=== PATIENT | male | born 1935 | race Caucasian/White ===

== ENCOUNTER 2019-05-16 22:47 | Inpatient (IN) | payer OTHER, MEDICAID ==
[~2019-05-16] VITALS: Ht 165.1 cm; Wt 58.1 kg
[2019-05-16 22:47] VITALS: BP 113/68
--- NOTE | 2019-05-16 22:49 | NUR ---
PT BIBA TO BED 11
--- NOTE | 2019-05-16 22:50 | NUR ---
PT RA FROM [facility]. PER KIKE LANDAVERDE AT FACILITY PT WAS FOUND SITTING DOWN ON THE FLOOR AT 0840. ONLY BLOOD WORK WAS PERFORMED AND THEY FOUND POTASSIUM AT 6.3 AND ELEVATED BUN AND CREATININE. PT IS ALERT AND ORIENTED TO PERSON, PLACE, AND TIME. [facility] PT DENIES ANY PAIN, PAIN LEVEL 0/10. DENIES N/V/D. PT HAS OLD SURGICAL SCAR ON ABDOMEN. NKA. MED HX: REPEATED FALLS, LACK OF COORDINATION, MUSCLE WEAKNESS, DYSPHAGIA, ADULT FAILURE TO THRIVE, DM2, HTN, ATAXIA, AND UNSPECIFIED DEMENTIA. SAFETY MEASURES IN PLACE. BED IN LOWEST POSITION, HOB ELEVATED, BED RAILS UP X2. ERMD MADE AWARE OF PT STATUS.
--- NOTE | 2019-05-16 22:55 | NUR ---
CALLED [facility] AND SPOKE TO KIKE LANDAVERDE. PER CASH TELLER PT WAS FOUND SITTING DOWN ON FLOOR AT 0840, ONLY LABS WERE DRAWN.
--- NOTE | 2019-05-16 23:20 | NUR ---
LAB AT BEDSIDE
[2019-05-16 23:45] LABS: BASOPHILS % (AUTO) 0.4 % (0.0-2.0); EOSINOPHILS # (AUTO) 0.1 K/uL (0-0.4); EOSINOPHILS % (AUTO) 1.3 % (0.0-4.0); HEMOGLOBIN 14.3 g/dL (12.0-18.0); LYMPHOCYTES # (AUTO) 1.2 K/uL (2.0-11.5); LYMPHOCYTES % (AUTO) 13.4 % (20.5-51.1); MEAN CORPUSCULAR HEMOGLOBIN 31 pg (27-31); MEAN CORPUSCULAR HGB CONC 33 g/dL (33-37); MONOCYTES # (AUTO) 0.7 K/uL (0.8-1.0); NEUTROPHILS # (AUTO) 7.2 K/uL (1.8-7.7); NEUTROPHILS % (AUTO) 76.9 % (42.2-75.2); PLATELET COUNT (AUTO) 276 K/uL (140-450); RED BLOOD CELL COUNT(AUTO) 4.58 MIL/uL (4.20-6.10); RED CELL DISTRIBUTION WIDTH 13.9 % (11.6-13.7); WHITE BLOOD COUNT (AUTO) 9.3 K/uL (4.8-10.8)
[2019-05-17] VITALS (7 sets, daily range): BP systolic 89–116; BP diastolic 48–68
--- NOTE | 2019-05-17 00:03 | NUR ---
PT UNABLE TO COLLECT URINE SAMPLE AFTER MULTIPLE ATTEMPTS. DR MOURA MADE AWARE, PER ERMD, OK TO STRAIGHT CATH PT. EXPLAINED PROCEDURE TO PT, PT VERBALIZED UNDERSTANDING, TOLERATED PROCEDURE WELL, CLEAR YELLOW URINE 60ML URINE SAMPLE COLLECTED AND SENT TO LAB.
[2019-05-17 00:11] LABS: APPEARANCE,URINE CLEAR (CLEAR); BILIRUBIN,URINE NEGATIVE (NEGATIVE); BLOOD, URINE NEGATIVE (NEGATIVE); COLOR,URINE YELLOW (YELLOW); LEUKOCYTE ESTERASE ,URINE NEGATIVE (NEGATIVE); NITRITE, URINE NEGATIVE (NEGATIVE); PH,URINE 5.5 (5.0-9.0); UGLUCOSE 2+ (NEGATIVE)
[2019-05-17 00:20] LABS: ALBUMIN 3.6 g/dL (3.4-5.0); ANION GAP 19.5 (8-16); ASPARTATE AMINOTRANSFERASE 38 U/L (15-37); CARBON DIOXIDE 17.7 mmol/L (21-32); CHLORIDE 104 mmol/L (98-107); CREATININE 2.6 mg/dL (0.7-1.3); GLUCOSE 91 mg/dL (74-106); MAGNESIUM 2.7 mg/dL (1.8-2.4); SODIUM SERUM 135 mmol/L (136-145); TOTAL BILIRUBIN 0.3 mg/dL (0.0-1.0)
[2019-05-17 00:22] LABS: POTASSIUM 6.2 mmol/L (3.5-5.1); UREA NITROGEN, BLOOD 67 mg/dL (7-18)
[2019-05-17 00:30] LABS: RBC,URINE NONE SEEN /HPF (0-5); WBC,URINE 0-5 /HPF (0-5)
[2019-05-17] MEDS ORDERED: SODIUM POLYSTYRENE 15 GM/60 ML UDBTL PO ONE (00:30)
[2019-05-17] MEDS ORDERED: ALBUTEROL 0.083% 2.5 MG/3 ML NEBU INH ONE (00:30)
[2019-05-17] MEDS ORDERED: DEXTROSE 25% 10 ML SYR IVP ONE (00:30)
[2019-05-17] MEDS ORDERED: NACL 0.9% 1,000 ML IV ONE ×2 (00:30→05:50)
[2019-05-17] MEDS ORDERED: INSULIN REGULAR, HUMAN 100 UNIT/ML VIAL SUBQ ONE (00:30)
[2019-05-17] MEDS ORDERED: CALCIUM GLUCONATE 10% 1000 MG/10 ML VIAL IVP ONE (00:30)
[2019-05-17] MEDS ORDERED: DEXTROSE 50% 50 ML SYR IVP ONE (00:40)
--- NOTE | 2019-05-17 00:53 | NUR ---
PT RETURNED FROM CT
[2019-05-17 01:04] LABS: ACETONE, SERUM NEGATIVE (NEGATIVE)
[2019-05-17 01:05] LABS: SALICYLATE < 2.8 mg/dL (2.8-20.0)
--- NOTE | 2019-05-17 01:35 | NUR ---
ADMITTED THIS 84 YEAR OLD MALE PATIENT FROM ER DUE TO S/P FALL FROM THE [facility] AND WITH ABNORMAL LABS. ASSISTED PATIENT TO ICU 2; CONNECTED TO RN EMERGENCY ROOM, SCOPE SHOWS ON SINUS RHYTHM NO ARRHYTHMIAS SEEN. BREATHING EVEN AND UNLABORED, ON ROOM AIR, SO2 98%. PATIENT IS AWAKE, ALERT AND ORIENTED ABLE TO MOVE LIMBS FREELY.MRSA SCREENING SENT.
--- NOTE | 2019-05-17 01:40 | NUR ---
Transfer of care and report given to SHANNAN Cruz.
--- NOTE | 2019-05-17 01:40 | NUR ---
Patient will be admitted to care of Dr. Wood. Admited to ICU. Will go to room 2. Belongings list completed. Report to SHANNAN Cruz.
[2019-05-17] MEDS ORDERED: ONDANSETRON 4 MG/2 ML VIAL IM/IVP PRN (01:50)
[2019-05-17] MEDS ORDERED: MORPHINE SULFATE 2 MG/ML SYR IVP PRN (01:50)
[2019-05-17] MEDS ORDERED: HYDROcodone/APAP 5/325 MG 1 TAB TAB PO PRN (01:50)
[2019-05-17] MEDS ORDERED: ACETAMINOPHEN 325 MG TAB PO PRN (01:50)
[2019-05-17] MEDS ORDERED: DOCUSATE SODIUM 100 MG GELCAP PO PRN (01:50)
[2019-05-17] MEDS: NACL 0.9% 1,000 ML IV SCH ×3 (02:25→07:10)
[2019-05-17] MEDS ORDERED: MEMA10TA20 PO (02:32)
[2019-05-17] MEDS ORDERED: ATOR40TA40 PO (02:32)
[2019-05-17] MEDS ORDERED: METF1TAB5 PO (02:32)
[2019-05-17] MEDS ORDERED: MAGN400S60 PO (02:32)
[2019-05-17] MEDS ORDERED: CANA300T PO (02:32)
[2019-05-17] MEDS ORDERED: [UNRECOGNIZED DRUG - CODE] PO (02:32)
[2019-05-17] MEDS ORDERED: ACET-2619 PO (02:32)
[2019-05-17] MEDS ORDERED: DOCU-299 PO (02:32)
[2019-05-17] MEDS ORDERED: HUMSLIDE (02:32)
[2019-05-17] MEDS ORDERED: BISA-213 RC (02:32)
[2019-05-17] MEDS ORDERED: VALS160T2 PO (02:32)
[2019-05-17] MEDS ORDERED: ASPI1CPM PO (02:32)
--- NOTE | 2019-05-17 03:01 | NUR ---
PATIENT STATES NEEDS TO USE RESTROOM BOTH BM AND URINE. ASSISTED PATIENT WITH BEDSIDE COMMODE. PATIENT ABLE TO MOVE TO AND SIT ON BEDSIDE COMMODE. PATIENT STATES URINATION AND BM AT THE SAME TIME. 1 QT OF LIQUID YELLOW TINGED BM WITH MULTIPLE SMALL PIECES OF FECES PRESENT AND URINE PRESENT IN BEDSIDE COMMODE. STRONG SMELL PRESENT. WIPES GIVEN TO PATIENT WHO WANTED TO CLEAN SELF. STANDBY ASSIST BY BOTH NURSES. ASSISTED BACK TO BED. PATIENT STATES "I FEEL MUCH BETTER."
[2019-05-17] MEDS ORDERED: INSULIN LISPRO SLIDING SCALE 100 UNITS/ML VIAL SUBQ PRN (03:05)
[2019-05-17] MEDS ORDERED: DEXTROSE 50% 50 ML SYR IVP PRN (03:05)
--- NOTE | 2019-05-17 05:02 | NUR ---
BLOOD SUGAR CHECKED AGAIN , BS 200. AWARE. CHARGE NURSE NOTIFIED
[2019-05-17 05:30] LABS: BASOPHILS % (AUTO) 0.2 % (0.0-2.0); EOSINOPHILS # (AUTO) 0.1 K/uL (0-0.4); EOSINOPHILS % (AUTO) 1.2 % (0.0-4.0); HEMATOCRIT 39.7 % (36-52); LYMPHOCYTES # (AUTO) 1.3 K/uL (2.0-11.5); LYMPHOCYTES % (AUTO) 12.8 % (20.5-51.1); MEAN CORPUSCULAR HEMOGLOBIN 32 pg (27-31); MEAN CORPUSCULAR HGB CONC 33 g/dL (33-37); MEAN CORPUSCULAR VOLUME 96.4 fL (80-94); NEUTROPHILS # (AUTO) 7.6 K/uL (1.8-7.7); NEUTROPHILS % (AUTO) 75.8 % (42.2-75.2); PLATELET COUNT (AUTO) 280 K/uL (140-450); RED BLOOD CELL COUNT(AUTO) 4.12 MIL/uL (4.20-6.10); RED CELL DISTRIBUTION WIDTH 14.1 % (11.6-13.7)
--- NOTE | 2019-05-17 06:18 | NUR ---
LAB CALLED LACTIC 2.1 BUN 64 CHARGE NURSE TOOK MESSAGE. CALLED MD AT 06. VERBAL ORDER TO GIVE BOLUS ORDERED NOTIFIED HIM OF LABS. ALSO POTASSIUM 5.2. MD AWARE "OK" KRYSTLE. BOLUS STARTED 622 ORDERED
[2019-05-17 06:19] LABS: ANION GAP 18.9 (8-16); CARBON DIOXIDE 15.3 mmol/L (21-32); CHLORIDE 110 mmol/L (98-107); CREATININE 2.4 mg/dL (0.7-1.3); GLUCOSE 168 mg/dL (74-106); POTASSIUM 5.2 mmol/L (3.5-5.1); SODIUM SERUM 139 mmol/L (136-145); UREA NITROGEN, BLOOD 64 mg/dL (7-18)
--- NOTE | 2019-05-17 06:31 | NUR ---
AT BEDSIDE. FLOR CHECKED ON PATIENT. POSSIBLE DOWNGRADE TODAY. WILL FOLLOW UP WITH DR. CHAO. NOTIFIED OF BOLUS AND LOW BP IN SBP OF 80S
--- NOTE | 2019-05-17 07:20 | NUR ---
RECEIVED PT FROM PM NURSE. PT AWAKE, ALERT.BEDSIDE MONITOR SHOWS SR. PT ON RA, NO S/S OF RESPIRATORY DISTRESS NOTED. PT HAS IV TO RIGHT WRIST # 22 RUNNING 0.9 NS AT 100 CC/HR. ABD SOFT, SCD IN PLACE, INTRODUCED MYSELF, POC EXPLAINED, PT VERBALIZED UNDERSTANDING, WILL CONTINUE TO MONITOR.
--- NOTE | 2019-05-17 07:30 | NUR ---
ASSISTED PT TO BEDSIDE COMMODE. PT HAD WATERY BM ABOUT 700CC. CLEANED PT. ASSISTED PT BACK TO BED.
[2019-05-17] MEDS: BLOOD GLUCOSE MONITORING 1 DEV DEV FS SCH ×4 (08:08→21:24)
[2019-05-17] MEDS ORDERED: VALSARTAN 80 MG TAB PO SCH (09:00)
[2019-05-17] MEDS ORDERED: SODIUM POLYSTYRENE 15 GM/60 ML UDBTL PO SCH ×2 (09:00)
[2019-05-17] MEDS ORDERED: SITAGLIPTIN PHOS PO SCH (09:00)
[2019-05-17] MEDS ORDERED: ASPIRIN PO SCH (09:00)
[2019-05-17] MEDS ORDERED: METFORMIN HCL PO SCH (09:00)
[2019-05-17] MEDS ORDERED: DIPYRIDAMOLE PO SCH (09:00)
--- NOTE | 2019-05-17 09:03 | NUR ---
US TECH AT BEDSIDE.
[2019-05-17] MEDS: MEMANTINE 10 MG TAB PO SCH (09:30)
[2019-05-17] MEDS: ATORVASTATIN 20 MG TAB PO SCH (09:30)
--- NOTE | 2019-05-17 10:42 | NUR ---
PT SLEEPING AT THIS MOMENT. NO S/S OF RESPIRATORY DISTRESS NOTED.
--- NOTE | 2019-05-17 12:30 | NUR ---
ASSISTED PT TO BEDSIDE COMMODE. PT HAS DIARRHEA ABOUT 300 CC. CLEANED PT AND ASSISTED PT BACK TO BED. AFTER THAT PT TOOK A NAP.
--- NOTE | 2019-05-17 13:34 | NUR ---
PT'S SISTER AT BEDSIDE TO VISIT PT. UPDATED PT'S SITUATION.
--- NOTE | 2019-05-17 15:15 | NUR ---
ASSISTED PT TO USE BEDSIDE COMMODE. PT HAD BM. CLEANED PT. ASSISTED PT BACK TO BED .
--- NOTE | 2019-05-17 18:26 | NUR ---
PT MOANING, PT'S DAUGHTER AND GRANDDAUGHTER AT BEDSIDE, ASKED PT DOES SHE HAVE PAIN, PER PT'S DAUGHTER, PT FELT TIRED THAT'S WHY SHE IS MOANING. O2 SATS 100%, BP 128/73, HR 110, RR 24. Addendum: 05/17/19 at 1953 by Poornima Horn RN wrong pt.
--- NOTE | 2019-05-17 19:30 | NUR ---
pt awake, alert. on RA, no s/s of respiratory distress. transferred pt to tele 122 B. all personal belongings with pt.
--- NOTE | 2019-05-17 19:32 | NUR ---
RECEIVED REPORT FROM ICU NURSE. AAOX3. DENIES PAIN OR SOB. ON ROOM AIR. SKIN INTACT. IV TO RIGHT WRIST #22G. ORIENTED PT TO ROOM. DISCUSSED PLAN OF CARE, PT VERBALIZED UNDERSTANDING. SAFETY PRECAUTION IN PLACE. CALL LIGHT WITHIN REACH.
--- NOTE | 2019-05-17 20:45 | NUR ---
SNACK PROVIDED TO PT. BLOOD SUGAR CHECKED 86. ALL NEEDS ATTENDED AT THIS TIME.
[2019-05-17] MEDS: MIRTAZAPINE 15 MG TAB PO SCH (21:25)
--- NOTE | 2019-05-17 22:50 | NUR ---
PT LYING IN BED. DENIES PAIN OR SOB. ALL NEEDS ATTENDED AT THIS TIME. CALL LIGHT WITHIN REACH.
[2019-05-17 22:53] LABS: ANION GAP 13.7 (8-16); CHLORIDE 113 mmol/L (98-107); CREATININE 1.7 mg/dL (0.7-1.3); GLUCOSE 134 mg/dL (74-106); POTASSIUM 4.7 mmol/L (3.5-5.1); SODIUM SERUM 141 mmol/L (136-145); UREA NITROGEN, BLOOD 36 mg/dL (7-18)
[2019-05-18] VITALS: BP 121/65
--- NOTE | 2019-05-18 01:10 | NUR ---
PT SLEEPING BUT EASILY AROUSABLE. NO S/S OF RESP DISTRESS/. NO S/S OF PAIN. SAFETY PRECAUTION IN PLACE. CALL LIGHT WITHIN REACH
--- NOTE | 2019-05-18 02:09 | NUR ---
CLARIFIED LACTIC ACID LEVEL 2.7 ON 05/17/19 AT 23:32 TO LAB. PER RAY, IT WAS A MISTAKE, THE RESULT WAS FOR 05/16/19 WHEN THE PT WAS STILL IN ER.
[2019-05-18 04:00] VITALS: BP 100/64
--- NOTE | 2019-05-18 04:00 | NUR ---
V/S TAKEN, WNL. RESP EVEN AND UNLABORED. PT KEPT COMFORTABLE. CALL LIGHT WITHIN REACH.
--- NOTE | 2019-05-18 06:00 | NUR ---
PT'S BLOOD SUGAR 71. ORANGE JUICE GIVEN. NO S/S OF DISTRESS NOTED. Addendum: 05/18/19 at 0620 by Michael Rosa RN BLOOD SUGAR CHECKED 71. NO S/S OF HYPOGLYCEMIA. DENIES PAIN OR DISCOMFORT. APPLE JUICE GIVEN. NO S/S OF DISTRESS NOTED.
[2019-05-18] MEDS: BLOOD GLUCOSE MONITORING 1 DEV DEV FS SCH ×4 (06:10→21:00)
--- NOTE | 2019-05-18 07:05 | NUR ---
ENDORSED PT TO DAY SHIFT NURSE. PT IN STABLE CONDITION.
--- NOTE | 2019-05-18 07:10 | NUR ---
REPORT RECEIVED FROM SENIOR AUTOMATION ENGINEER NURSE, PT AWAKE ALERT, RESP EVEN UNLABORED, SKIN WARM DRY COLOR WNL, POC REVIEWED, PT DENIES PAIN OR DISCOMFORT, NO NEEDS AT THIS TIME, ALL SAFETY MEASURES IN PLACE, WILL CONTINUE TO MONITOR.
[2019-05-18 07:20] LABS: CARBON DIOXIDE 19.4 mmol/L (21-32); CHLORIDE 114 mmol/L (98-107); CREATININE 1.5 mg/dL (0.7-1.3); GLUCOSE 85 mg/dL (74-106); POTASSIUM 4.4 mmol/L (3.5-5.1); SODIUM SERUM 144 mmol/L (136-145); UREA NITROGEN, BLOOD 28 mg/dL (7-18)
[2019-05-18 07:34] LABS: MAGNESIUM 1.5 mg/dL (1.8-2.4); PHOSPHORUS 2.8 mg/dL (2.5-4.9)
[2019-05-18 08:00] VITALS: BP 112/58
--- NOTE | 2019-05-18 08:30 | NUR ---
PATIENT HAS BEEN SCREENED AND CATEGORIZED MODERATE NUTRITION RISK. PATIENT WILL BE SEEN WITHIN 3-5 DAYS OF ADMISSION. 05/19/19 05/21/[address]
[2019-05-18] MEDS: ATORVASTATIN 20 MG TAB PO SCH (08:49)
[2019-05-18] MEDS: MEMANTINE 10 MG TAB PO SCH (08:50)
--- NOTE | 2019-05-18 08:52 | NUR ---
AM MEDS GIVEN PT PAPO PILLS WELL, DENIES PAIN, WILL CONTINUE TO MONITOR
[2019-05-18] MEDS: NACL 0.9% 1,000 ML IV SCH ×2 (09:06→19:06)
--- NOTE | 2019-05-18 09:25 | NUR ---
PT UP AMBULATING WITH PHYSICAL THERAPY
[2019-05-18 10:08] LABS: PROTHROMBIN TIME 9.3 secs (10.8-13.4)
[2019-05-18 10:09] LABS: PHOSPHORUS 4.5 mg/dL (2.5-4.9)
[2019-05-18 10:15] LABS: THYROID STIMULATING HORMONE 1.45 uIU/mL (0.34-3.74)
--- NOTE | 2019-05-18 11:15 | NUR ---
Tree Trimming Line Technician Note: Ang Aguayo from [facility] , patient is on a 7 day bed hold. She stated she will fax me patient's Advance Directive. I provided her with case management/health social work professor fax number.
--- NOTE | 2019-05-18 12:09 | NUR ---
PT SITTING UP EATING LUNCH, APPEARS IN NO ACUTE DISTRESS, DENIES ANY IMMEDIATE NEEDS, BLOOD SUGAR 126, NO INSULIN NEEDED.
--- NOTE | 2019-05-18 14:18 | NUR ---
PT SITTING ON SIDE OF BED USING URINAL, MINIMAL ASSIST NEEDED, PT DENIES ANY PAIN, DENIES ANY IMMEDIATE NEEDS, IVF IKNFUSING WELL, SITE WNL, WILL CONTINUE TO MONITOR.
[2019-05-18 16:10] VITALS: BP 99/56
--- NOTE | 2019-05-18 19:13 | NUR ---
ENDORSED PATIENT IS IN STABLE CONDITION TO TRADE UNION SECRETARY NURSE.
--- NOTE | 2019-05-18 19:13 | NUR ---
RECIEVED PT AAOX1 TO 2 , WITH HX OF DEMENTIA BUT OBEYS SIMPLE COMMAND , NID , IV SITE INTACT AND PATENT , PLAN OF CARE DISCUSSED BUT POOR UNDERSTANDING DUE TO MENTAL STATUS , ON SAFETY /FALL PRECAUTION PROTOCOL - CALL LIGHT WITHIN REACH , BED ALARM ON , USES URINAL , NO FURTHER COMPLAIN AT THIS TIME , WILL CONT. TO MONITOR.
[2019-05-18 20:00] VITALS: BP 116/78
[2019-05-18] MEDS: MIRTAZAPINE 15 MG TAB PO SCH (21:09)
[2019-05-19] VITALS: BP 110/60
[2019-05-19 04:00] VITALS: BP 110/60
[2019-05-19] MEDS: NACL 0.9% 1,000 ML IV SCH ×2 (05:06→16:52)
[2019-05-19 06:07] LABS: ANION GAP 15.1 (8-16); CARBON DIOXIDE 18.9 mmol/L (21-32); CHLORIDE 113 mmol/L (98-107); CREATININE 1.4 mg/dL (0.7-1.3); GLUCOSE 88 mg/dL (74-106); SODIUM SERUM 143 mmol/L (136-145); UREA NITROGEN, BLOOD 19 mg/dL (7-18)
[2019-05-19 06:15] LABS: MAGNESIUM 1.4 mg/dL (1.8-2.4)
[2019-05-19] MEDS: BLOOD GLUCOSE MONITORING 1 DEV DEV FS SCH ×4 (06:30→21:10)
[2019-05-19 06:37] LABS: BASOPHILS % (AUTO) 0.3 % (0.0-2.0); EOSINOPHILS # (AUTO) 0.1 K/uL (0-0.4); HEMATOCRIT 31.9 % (36-52); HEMOGLOBIN 10.5 g/dL (12.0-18.0); LYMPHOCYTES # (AUTO) 1.8 K/uL (2.0-11.5); LYMPHOCYTES % (AUTO) 19.8 % (20.5-51.1); MEAN CORPUSCULAR HEMOGLOBIN 31 pg (27-31); MEAN CORPUSCULAR HGB CONC 33 g/dL (33-37); MEAN CORPUSCULAR VOLUME 95.5 fL (80-94); MONOCYTES # (AUTO) 1.1 K/uL (0.8-1.0); MONOCYTES % (AUTO) 11.8 % (1.7-9.3); NEUTROPHILS # (AUTO) 6.1 K/uL (1.8-7.7); NEUTROPHILS % (AUTO) 67.1 % (42.2-75.2); PLATELET COUNT (AUTO) 240 K/uL (140-450); RED BLOOD CELL COUNT(AUTO) 3.34 MIL/uL (4.20-6.10); RED CELL DISTRIBUTION WIDTH 13.9 % (11.6-13.7); WHITE BLOOD COUNT (AUTO) 9.1 K/uL (4.8-10.8)
--- NOTE | 2019-05-19 07:25 | NUR ---
RECEIVED PT FROM NIGHT NURSE IN STABLE CONDITION. PT AAO X2, AROUSABLE TO SPEECH. NO SIGNS OF PAIN OR DISTRESS NOTED. SKIN INTACT. RESPIRATIONS EVEN AND UNLABORED. SAFETY MEASURES IN PLACE. BED IN LOW POSITION. CALL LIGHT WITHIN REACH. WILL CONTINUE TO MONITOR.
[2019-05-19 08:00] VITALS: BP 110/65
[2019-05-19] MEDS ORDERED: MAG SULF 2000 MG/WATER PREMIX 50 ML IV SCH (08:00)
[2019-05-19] MEDS ORDERED: SODIUM PHOS / POTASSIUM PHOS 1 PKT PDR PO SCH (08:15)
[2019-05-19] MEDS: MEMANTINE 10 MG TAB PO SCH (08:58)
[2019-05-19] MEDS: ATORVASTATIN 20 MG TAB PO SCH (09:00)
--- NOTE | 2019-05-19 09:00 | NUR ---
NEW IV INSERTED IN LEFT FA. PATENT AND FLUSHED. MEDICATIONS ADMINISTERED PER ORDER. PT TOLERATED WELL, NO SIGNS OF DISTRESS. SAFETY MEASURES IN PLACE. WILL CONTINUE TO MONITOR.
[2019-05-19] MEDS: CALCIUM CARB/VIT-D 500 MG/200 IU 1 TAB PO SCH (09:01)
[2019-05-19 12:00] VITALS: BP 115/80
--- NOTE | 2019-05-19 12:00 | NUR ---
BLOOD GLUCOSE MONITORED. NO COVERAGE NEEDED. NO DISTRESS NOTED, NO PAIN REPORTED BY PT. SAFETY MEASURES IN PLACE. WILL CONTINUE TO MONITOR.
--- NOTE | 2019-05-19 14:00 | NUR ---
MEDICATIONS ADMINISTERED PER ORDER. SAFETY MEASURES IN PLACE. WILL CONTINUE TO MONITOR
[2019-05-19 16:00] VITALS: BP 122/68
--- NOTE | 2019-05-19 16:45 | NUR ---
BLOOD GLUCOSE MONITORED. NO COVERAGE NEEDED. PT UNDER NO DISTRESS. WILL CONTINUE TO MONITOR
--- NOTE | 2019-05-19 19:05 | NUR ---
PT GIVEN TO NIGHT NURSE IN STABLE CONDITION FOR CONTINUITY OF CARE.
--- NOTE | 2019-05-19 19:06 | NUR ---
RECEIVED PT FROM AM SHIFT NURSE IN STABLE CONDITION. PT AAO X4, CAN SPEAK LITHUANIAN, AMBULATORY. NO SIGNS OF PAIN OR DISTRESS NOTED. SKIN INTACT. RESPIRATIONS EVEN AND UNLABORED. SAFETY MEASURES IN PLACE. BED IN LOW POSITION. CALL LIGHT WITHIN REACH. WILL CONTINUE TO MONITOR.
[2019-05-19 20:00] VITALS: BP 102/45
[2019-05-19] MEDS: MIRTAZAPINE 15 MG TAB PO SCH (21:10)
--- NOTE | 2019-05-19 21:10 | NUR ---
ADMINISTERED DUE MEDS, SIDE EFFECTS EXPLAINED,PT VERBALIZED UNDERSTANDING. PT TOLERATED MEDICATION
--- NOTE | 2019-05-19 23:58 | NUR ---
PT WENT TO THE BATHROOM, VOIDED ,STEADY GAIT, NO COMPLAINTS OF PAIN, NOT IN RESPIRATORY DISTRESS
[2019-05-20] VITALS: BP 105/50
--- NOTE | 2019-05-20 00:16 | NUR ---
PT SLEEPING COMFORTABLY IN BED, NO COMPLAINTS. CHECKED ON THE IVF, BEEPING, PT SLEEPING ON THE TUBES, FIXED THE IVF AND PUMP. IVF PATENT AND INFUSING WELL.
--- NOTE | 2019-05-20 02:45 | NUR ---
CHECKED ON PATIENT ROUNDING DONE. PT COMFORTABLY SLEEPING, NO DISTRESS NOTED. AWAKENED PT TO TURN HIM AND REPOSITIONING DONE. NO COMPLAINTS AT THIS TIME
[2019-05-20 04:00] VITALS: BP 113/77
--- NOTE | 2019-05-20 04:30 | NUR ---
PT WENT TO BATHROOM, AMBULATORY, WENT BACK TO BED, WILL CONTINUE TO MONITOR
[2019-05-20] MEDS: NACL 0.9% 1,000 ML IV SCH ×2 (05:22→23:50)
[2019-05-20] MEDS: BLOOD GLUCOSE MONITORING 1 DEV DEV FS SCH ×4 (05:50→20:53)
--- NOTE | 2019-05-20 06:32 | NUR ---
AWAKE, ALERT ORIENTED X 4, NO RESPIRATORY DISTRESS, PT IN STABLE CONDITION WILL ENDORSE TO NEXT SHIFT
--- NOTE | 2019-05-20 07:10 | NUR ---
PT RECEIVED FROM NIGHT NURSE. PT SLEEPING, AROUSABLE TO SPEECH. RESPIRATIONS EVEN AND UNLABORED. AAO X4. IV IN PLACE L FA 22G INFUSING PER ORDER. SKIN INTACT. PT STATES HE HAS APPETITE AND WILL EAT HIS BREAKFAST. NO DISTRESS NOTED. PT DENIES PAIN. SAFETY MEASURES IN PLACE. CALL LIGHT WITHIN REACH. WILL CONTINUE TO MONITOR.
[2019-05-20 07:57] LABS: ANION GAP 15.4 (8-16); CARBON DIOXIDE 17.8 mmol/L (21-32); CHLORIDE 111 mmol/L (98-107); CREATININE 1.2 mg/dL (0.7-1.3); GLUCOSE 96 mg/dL (74-106); POTASSIUM 4.2 mmol/L (3.5-5.1); SODIUM SERUM 140 mmol/L (136-145); UREA NITROGEN, BLOOD 15 mg/dL (7-18)
[2019-05-20 08:00] VITALS: BP 134/65
[2019-05-20 08:09] LABS: HEMATOCRIT 32.5 % (36-52); HEMOGLOBIN 10.5 g/dL (12.0-18.0); MEAN CORPUSCULAR HEMOGLOBIN 31 pg (27-31); MEAN CORPUSCULAR HGB CONC 32 g/dL (33-37); PLATELET COUNT (AUTO) 213 K/uL (140-450); RED BLOOD CELL COUNT(AUTO) 3.38 MIL/uL (4.20-6.10); RED CELL DISTRIBUTION WIDTH 14.2 % (11.6-13.7); WHITE BLOOD COUNT (AUTO) 11.5 K/uL (4.8-10.8)
[2019-05-20 08:31] LABS: MAGNESIUM 1.6 mg/dL (1.8-2.4); PHOSPHORUS 1.9 mg/dL (2.5-4.9)
[2019-05-20 08:43] LABS: LYMPHOCYTES % (MANUAL) 14 % (20-46); MONOCYTES % (MANUAL) 5 % (5-12)
[2019-05-20] MEDS: ATORVASTATIN 20 MG TAB PO SCH (08:53)
[2019-05-20] MEDS: MEMANTINE 10 MG TAB PO SCH (08:54)
[2019-05-20] MEDS: CALCIUM CARB/VIT-D 500 MG/200 IU 1 TAB PO SCH (08:54)
--- NOTE | 2019-05-20 09:15 | NUR ---
MEDICATION ADMINISTERED PER ORDER. PT TOLERATED WELL, WHILE EATING BREAKFAST. NO DISTRESS NOTED. DENIES PAIN. SAFETY MEASURES IN PLACE. WILL CONTINUE TO MONITOR.
[2019-05-20 12:00] VITALS: BP 112/46
--- NOTE | 2019-05-20 12:05 | NUR ---
MEDICATIONS ADMINISTERED PER ORDER. PT TOLERATED WELL. EATING LUNCH. SAFETY MEASURES IN PLACE. WILL CONTINUE TO MONITOR.
[2019-05-20] MEDS ORDERED: MAG SULF 2000 MG/WATER PREMIX 50 ML IV SCH (12:30)
[2019-05-20] MEDS ORDERED: SODIUM PHOS / POTASSIUM PHOS 1 PKT PDR PO SCH (12:30)
--- NOTE | 2019-05-20 14:20 | NUR ---
05/20/19 RD INITIAL ASSESSMENT COMPLETED PLEASE REFER TO NUTRITION ASSESSMENT UNDER CARE ACTIVITY FOR ESTIMATED NUTRITIONAL NEEDS. 1. CONTINUE MECHANICAL SOFT CCHO 60 GM DIET WITH GLUCERNA DAILY TOLERATED 2. RD TO FOLLOW-UP 5-7 DAYS, LOW RISK JAVI CHANDLER, RD
[2019-05-20 16:00] VITALS: BP 113/58
--- NOTE | 2019-05-20 17:20 | NUR ---
PT BLOOD GLUCOSE MONITORED AT THIS TIME. NO COVERAGE NEEDED. PT IN NO DISTRESS. SAFETY MEASURES IN PLACE. WILL CONTINUE TO MONITOR.
--- NOTE | 2019-05-20 19:00 | NUR ---
HAND OFF OF PT TO NIGHT NURSE IN STABLE CONDITION FOR CONTINUITY OF CARE. SAFETY MEASURES IN PLACE. CALL LIGHT WITHIN REACH.
--- NOTE | 2019-05-20 19:01 | NUR ---
RECEIVED BEDSIDE REPORT FROM AM NURSE FOR CONTINUITY OF CARE. PT A, A O X 3, AMBULATORY WITH STANDBY ASSIST ON TELEMONITORING. RESPIRATIONS EVEN AND UNLABORED. IV IN PLACE L FA 22G INFUSING WELL. SKIN INTACT. NO DISTRESS NOTED. PT DENIES PAIN. SAFETY MEASURES IN PLACE. CALL LIGHT WITHIN REACH. WILL CONTINUE TO MONITOR.
[2019-05-20 20:00] VITALS: BP 123/58
--- NOTE | 2019-05-20 20:53 | NUR ---
PT BG IS 173, WILL GIVE 2 UNITS OF INSULIN. GAVE PT A MIDNIGHT SNACK
[2019-05-20] MEDS: MIRTAZAPINE 15 MG TAB PO SCH (21:15)
[2019-05-21] VITALS: BP 137/53
--- NOTE | 2019-05-21 | NUR ---
PT'S IVF KEEP ON BEEPING,KINKING ON THE TUBE WHILE SLEEPING, FIXED THE IV SITE AND PUT IT BACK TO THE INFUSION RATE. IVF INFUSING WELL, PATENT AND INTACT
--- NOTE | 2019-05-21 02:00 | NUR ---
PT SLEEPING SOUNDLY, COMFORTABLE. NO COMPLAINTS OF PAIN, NO RESPIRATORY DISTRESS WILL CONTINUE TO MONITOR
[2019-05-21 04:00] VITALS: BP 101/54
--- NOTE | 2019-05-21 04:00 | NUR ---
SUNDING NOTED; GOING TO BATHROOM TO PEE. PT GETTING UP ON BED. INSTRUCTED HIM TO CALL NURSE. PT ACKNOWLEDGED BUT STILL DO NOT REMEMBER INSTRUCTIONS.
[2019-05-21 06:42] LABS: CARBON DIOXIDE 21.1 mmol/L (21-32); CHLORIDE 111 mmol/L (98-107); CREATININE 1.5 mg/dL (0.7-1.3); GLUCOSE 103 mg/dL (74-106); POTASSIUM 4.1 mmol/L (3.5-5.1); SODIUM SERUM 142 mmol/L (136-145); UREA NITROGEN, BLOOD 16 mg/dL (7-18)
--- NOTE | 2019-05-21 06:42 | NUR ---
AWAKE, ALERT X 3. AMBULATORY WITH STANDBY ASSIST. PT IN STABLE CONDITION. SUNDOWNING NOTED LAST NIGHT
[2019-05-21 06:43] LABS: MAGNESIUM 1.8 mg/dL (1.8-2.4)
[2019-05-21 06:51] LABS: BASOPHILS % (AUTO) 0.1 % (0.0-2.0); EOSINOPHILS # (AUTO) 0.2 K/uL (0-0.4); EOSINOPHILS % (AUTO) 1.6 % (0.0-4.0); HEMATOCRIT 31.2 % (36-52); HEMOGLOBIN 10.4 g/dL (12.0-18.0); LYMPHOCYTES # (AUTO) 1.8 K/uL (2.0-11.5); LYMPHOCYTES % (AUTO) 17.5 % (20.5-51.1); MEAN CORPUSCULAR HEMOGLOBIN 32 pg (27-31); MEAN CORPUSCULAR HGB CONC 34 g/dL (33-37); MEAN CORPUSCULAR VOLUME 94.1 fL (80-94); MONOCYTES # (AUTO) 1.1 K/uL (0.8-1.0); MONOCYTES % (AUTO) 11.4 % (1.7-9.3); NEUTROPHILS % (AUTO) 69.4 % (42.2-75.2); PLATELET COUNT (AUTO) 228 K/uL (140-450); RED BLOOD CELL COUNT(AUTO) 3.31 MIL/uL (4.20-6.10); RED CELL DISTRIBUTION WIDTH 13.8 % (11.6-13.7); WHITE BLOOD COUNT (AUTO) 10.1 K/uL (4.8-10.8)
[2019-05-21] MEDS: BLOOD GLUCOSE MONITORING 1 DEV DEV FS SCH ×4 (07:22→20:59)
--- NOTE | 2019-05-21 07:30 | NUR ---
RECEIVED PT FROM SATELLITE INSTALLER NURSEHUGO, PT IS AWAKE AND LYING ON THE BED WITH SIDE RAILS UP AND CALL LIGHT WITHIN REACH, FALL AND SAFETY PRECAUTION INITIATED, BED ALARM ACTIVATED,IV LINE ON THE LEFT FA G. 22 WITH NS INFUSING AT 80ML/HR, NO SIGN OF DISTRESS NOTED, PT ON ROOM AIR. WILL CONTINUE TO MONITOR PT.
[2019-05-21 08:07] VITALS: BP 115/61
[2019-05-21] MEDS: CALCIUM CARB/VIT-D 500 MG/200 IU 1 TAB PO SCH (09:23)
[2019-05-21] MEDS: MEMANTINE 10 MG TAB PO SCH (09:23)
[2019-05-21] MEDS: ATORVASTATIN 20 MG TAB PO SCH (09:24)
--- NOTE | 2019-05-21 09:24 | NUR ---
PT IS AWAKE AND ORAL MEDICATIONS WERE GIVEN AND TOLERATED IT. WILL MONITOR PT.
--- NOTE | 2019-05-21 10:20 | NUR ---
Change Management Consultant Note: I received patient's Durable Power of Farm Equipment Service Technician for Health Care from [facility] . I reviewed documents, Viktoria Borrero is listed as health care decision maker. I included documents in patient's chart. I called Viktoria, no answer, left message.
--- NOTE | 2019-05-21 11:57 | NUR ---
PT IS AWAKE AND BLOOD GLUCOSE CHECK DONE AND RESULT IS 129, NO INSULIN COVERAGE NEEDED. WILL MONITOR PT.
[2019-05-21] MEDS ORDERED: SODIUM PHOS / POTASSIUM PHOS 1 PKT PDR PO SCH (13:15)
--- NOTE | 2019-05-21 13:33 | NUR ---
NEUTRA-PHOS WAS GIVEN TO PT NOW. PT IS CALM AND COMPLIANT.
--- NOTE | 2019-05-21 17:04 | NUR ---
PT IS AWAKE AND WAS CLEANED UP, BLOOD GLUCOSE CHECK DONE NAND RESULT IS 117, NO INSULIN COVERAGE NEEDED. WILL MONITOR PT.
[2019-05-21 17:44] VITALS: BP 111/64
--- NOTE | 2019-05-21 19:15 | NUR ---
ENDORSED PT TO ESCALATOR INSTALLER NURSE FOR CONTINUITY OF CARE.
--- NOTE | 2019-05-21 19:16 | NUR ---
RECEIVED BEDSIDE REPORT FROM DAY SHIFT NURSE KYM RN, PT STABLE, NO DISTRESS NOTED, IV TO L FA 22G PATENT ,INTACT, INFUSING WELL, PT ON ROOM AIR, NO SOB NOTED, PT RESTING, CALL LIGHT WITHIN REACH, INITIAL ASSESSMENT DONE, ALL SAFETY PRECAUTION MET, WILL CONTINUE TO MONITOR.
[2019-05-21] MEDS: NACL 0.9% 1,000 ML IV SCH (19:50)
[2019-05-21] MEDS: MIRTAZAPINE 15 MG TAB PO SCH (20:56)
--- NOTE | 2019-05-21 20:59 | NUR ---
DUE MEDICATION ADMINISTERED, PT TOLERATED WELL, NO DISTRESS NOTED, CALL LIGHT WITHIN REACH, WILL CONTINUE TO MONITOR.
--- NOTE | 2019-05-21 23:45 | NUR ---
CHECKED ON PT, PT SLEEPING. V/S TAKEN, WNL, PT USED URINAL AT BEDSIDE, THEN WENT BACK TO BED, TOLERATED WELL, CALL LIGHT WITHIN REACH, WILL CONTINUE TO MONITOR/.
[2019-05-22] VITALS: BP 121/61
--- NOTE | 2019-05-22 01:56 | NUR ---
CHECKED ON PT, PT SLEEPING, CALL LIGHT WITHIN REACH, WILL CONTINUE TO MONITOR.
[2019-05-22] MEDS: BLOOD GLUCOSE MONITORING 1 DEV DEV FS SCH ×2 (06:17→12:12)
--- NOTE | 2019-05-22 06:17 | NUR ---
PT SLEEPING, BLOOD SUGAR CHECKED, 88, NO INSULIN ADMINISTERED, PT RESTING, NO DISTRESS NOTED, CALL LIGHT WITHIN REACH, WILL CONTINUE TO MONITOR.
--- NOTE | 2019-05-22 07:28 | NUR ---
ENDORSED PT TO DAY SHIFT NURSE PT RESTING, NO DISTRESS NOTED, CALL LIGHT WITHIN REACH.
--- NOTE | 2019-05-22 07:34 | NUR ---
Received report from table games shift manager nurse. Pt in be resting. No signs of distress. Call light within reach
[2019-05-22] MEDS ORDERED: AZITHROMYCIN 500 MG in DEXTROSE 5% 250 ML IV SCH (09:00)
--- NOTE | 2019-05-22 09:00 | NUR ---
Pt resting in bed. No distress. Call light in reach.
[2019-05-22] MEDS: CALCIUM CARB/VIT-D 500 MG/200 IU 1 TAB PO SCH (09:09)
[2019-05-22] MEDS: MEMANTINE 10 MG TAB PO SCH (09:10)
--- NOTE | 2019-05-22 09:10 | NUR ---
[place] [facility] TO ROOM 28A UNDER DR[address] BATES. Addendum: 05/22/19 at 1143 by Daylin Abad CM PER [facility], THEY CAN PAY FOR TRANSPORT. CONTACTED [facility] AT [phone], ABLE TO SPEAK TO ZHANNA. SHOE SINGER WILL BE AT 1500. PRIMARY RN MADE AWARE. Addendum: 05/22/19 at 1241 by Daylin Abad CM CONTACTED PATIENT DAUGHTER LASHAWN SHEEHAN AT [phone], NO ANSWER. LEFT HER A DETAILED MESSAGE REGARDING HIS FATHER DISCHARGING BACK [place] [facility] [place]. CONTACTED RAGHU DUMONT, PATIENT'S SON AT [phone], INFORMED HIM THAT PATIENT IS GOING BACK [place] [facility] [place]. ABLE TO VERBALIZE UNDERSTANDING AND AGREEABLE WITH THE PLAN. Addendum: 05/22/19 at 1245 by Daylin Abad CM [facility] RE[facility] MADE AWARE OF SHOE SINGER TIME.
[2019-05-22] MEDS: ATORVASTATIN 20 MG TAB PO SCH (09:12)
[2019-05-22] MEDS: NACL 0.9% 1,000 ML IV SCH (10:08)
[2019-05-22] MEDS ORDERED: COMMUNICATION ORDER MC ONE (11:10)
[2019-05-22] MEDS ORDERED: MISC INJECTION IM SCH (11:15)
--- NOTE | 2019-05-22 12:34 | NUR ---
Pt sitting in bed. Having lunch. No distress. Call light in reach.
--- NOTE | 2019-05-22 13:00 | NUR ---
Spoke to son Crow & notified of discharge plan to [facility] today. Son requests to call sister & notify her.
--- NOTE | 2019-05-22 13:30 | NUR ---
Spoke to Viktoria Ronald (daughter) on the phone & notified of discharge plan to [facility] today, verbalized understanding & agree with POC.
--- NOTE | 2019-05-22 14:40 | NUR ---
Report given to Nicki CAMPBELL from [facility].
--- NOTE | 2019-05-22 15:42 | NUR ---
Pt was discharged to SNF. [facility] came at 1542. Removed IV line. Catheter intact. Pt left by anish in stable condition. All belongings with patient upon discharge.
== END 2019-05-22 15:50 | DRG 682 ==
LOC: MED 22:47 → MIC 05-17 01:12 → MTU 05-17 19:30
PROVIDERS: ADMIT General Practice; ATTEND General Practice
DX: N17.0 Acute kidney failure with tubular necrosis (principal); G93.41 Metabolic encephalopathy; E87.1 Hypo-osmolality and hyponatremia; E87.2 Acidosis; G30.9 Alzheimer's disease, unspecified; E87.5 Hyperkalemia; E11.22 Type 2 diabetes mellitus with diabetic chronic kidney disease; F02.80 Dementia in other diseases classified elsewhere, unspecified severity, without behavioral disturbance, psychotic disturbance, mood disturbance, and anxiety; E11.65 Type 2 diabetes mellitus with hyperglycemia; E83.42 Hypomagnesemia; I12.9 Hypertensive chronic kidney disease with stage 1 through stage 4 chronic kidney disease, or unspecified chronic kidney disease; N18.9 Chronic kidney disease, unspecified; W18.30XA Fall on same level, unspecified, initial encounter; Z66 Do not resuscitate; E83.41 Hypermagnesemia; E78.5 Hyperlipidemia, unspecified; E83.51 Hypocalcemia; E83.39 Other disorders of phosphorus metabolism; Y93.89 Activity, other specified; Y92.89 Other specified places as the place of occurrence of the external cause; Y99.8 Other external cause status
CPT/HCPCS: 36415; 36600; 70450; 71045; 72072; 72110; 72125; 73562; 73610; 76770; 80048; 80053; 81001; 82009; 82553; 82803; 82948; 83036; 83605; 83690; 83735; 83880; 84100; 84134; 84443; 85025; 85610; 85730; 87081; 93005; 94640; 96361; 96372; 96374; 96375; 97110; 97116; 97161-GP; 97530; 99291; G0480; G0482; J0456; J0610; J1815; J3475; J7030; J7060; J7613; Q0092

== ENCOUNTER 2020-09-07 15:18 | Outpatient (CLI) | payer OTHER ==
[~2020-09-07 15:18] MED LIST: ACET-2619 PO; ASPI1CPM PO; ATOR40TA40 PO; BISA-213 RC; CANA300T PO; DOCU-299 PO; HUMSLIDE; MAGN400S60 PO; MEMA10TA56 PO; METF1TAB5 PO; VALS160T2 PO; [UNRECOGNIZED DRUG - CODE] PO
== END 2020-09-07 21:05 | disposition home or self-care (01) ==
LOC: MRD 15:18
PROVIDERS: ATTEND Family Medicine
DX: K80.20 Calculus of gallbladder without cholecystitis without obstruction (principal); K56.609 Unspecified intestinal obstruction, unspecified as to partial versus complete obstruction

== ENCOUNTER 2021-05-03 19:19 | Emergency (ER) | payer OTHER ==
[~2021-05-03] VITALS: Ht 162.6 cm; Wt 68.0 kg
[~2021-05-03 19:19] MED LIST changes: -ACET-2619 PO; +ASCO500T95 PO; -CANA300T PO; +EMPA25TA PO; -HUMSLIDE; +MIRT-91 PO; +MULT-1868 PO; +NA P133E RC; +TRI48 PO; -VALS160T2 PO; +VITB12 PO; +ZOS2.25PM IV; -[UNRECOGNIZED DRUG - CODE] PO
[2021-05-03 19:26] VITALS: BP 127/74
--- NOTE | 2021-05-03 19:27 | NUR ---
PT TAKEN TO BED 08 BY VITO.
--- NOTE | 2021-05-03 19:45 | NUR ---
PT BIBA FROM [facility] FOR C/C WITNESSED MECHANICAL FALL. PT DENIES PAIN AT THIS TIME BUT REPORTS HE FELL ON HIS LEFT LEG AND HIT THE LEFT SIDE OF HIS FACE. PT STATES "I JUST SLIPPED." NO NOTED DEFORMITY. SKIN REMAINS INTACT, NO NOTED SWELLING, REDNESS OR LACERATIONS. PT ALERT AND ORIENTED TO NAME, AND CURRENT LOCATION. DENIES LOSS OF CONSCIOUSNESS PER [facility]. BED LOCKED AND IN LOWEST POSITION. BED RAIL X 2. WARM BLANKET PROVIDED. MED HX: CKD, DM2, OSTEOARTHRITIS, ALZHEIMERS, METABOLIC ENCEPHALOPATHY ALLERGIES: NKA
--- NOTE | 2021-05-03 19:45 | NUR ---
ASSISTED PT WITH URINAL. APPROX 200 CC CLEAR, YELLOW URINE NOTED. SAMPLE COLLECTED.
--- NOTE | 2021-05-03 20:01 | NUR ---
ERMD AT BEDSIDE.
--- NOTE | 2021-05-03 20:30 | NUR ---
PT NOTED TO HAVE URINATED SMALL AMOUNT IN PANTS, HOWEVER PT REFUSING TO BE PLACED IN GOWN AT THIS TIME. STATES "NO THANK YOU I AM FINE."
--- NOTE | 2021-05-03 20:32 | NUR ---
PT STOOD UP OUT OF BED AND AMBULATED TO NURSES STATION. PT STATING "I AM GOING TO GO HOME NOW." INSTRUCTED PT TO RETURN TO BED, HOWEVER INSISTENT ON LEAVING, ATTEMPTING TO WALK OUT DOOR. REORIENTED TO BED AND ENCOURAGED TO WAIT UNTIL CT SCAN IS COMPLETE. [place] AGREEABLE. WILL CONTINUE TO MONITOR.
--- NOTE | 2021-05-03 20:35 | NUR ---
PT TAKEN TO CT VIA RFELIX.
--- NOTE | 2021-05-03 20:59 | NUR ---
PT ASSISTED WITH BEDSIDE URINE BY LUISA MILLER.
[2021-05-03] MEDS ORDERED: ACETAMINOPHEN 325 MG TAB PO ONE (21:10)
--- NOTE | 2021-05-03 21:10 | NUR ---
[place] [facility] COLLECTED AND TAKEN TO LAB.
--- NOTE | 2021-05-03 23:07 | NUR ---
PT UTILIZED BEDSIDE URINAL AND AMBULATED BACK TO BED. DENIES PAIN OR DISCOMFORT. WILL CONTINUE TO MONITOR.
--- NOTE | 2021-05-03 23:13 | NUR ---
ATTEMPTED TO CALL PHONE #S ON FILE TO PICK PT UP FOR D/C. NO ANSWER.
--- NOTE | 2021-05-03 23:24 | NUR ---
SPOKE WITH SHANNAN VIGIL [place] [facility]PDATED REGARDING PTS D[place]C. WILL UPDATE WHEN TRANSPORTATION BECOMES EST.
--- NOTE | 2021-05-04 01:30 | NUR ---
PT ATTEMPTING TO GET OUT OF BED AND WALK HALLS. REORIENTED TO ROOM. INSTRUCTED TO REMAIN IN ROOM. PT VERBALIZED UNDERSTANDING. URINE AT BEDSIDE PROVIDED.
--- NOTE | 2021-05-04 03:00 | NUR ---
Patient appears to be resting comfortably in bed, EYES CLOSED. Respirations even and unlabored. NO NOTED SIGNS OF DISTRESS AT THIS TIME.
--- NOTE | 2021-05-04 05:00 | NUR ---
Patient appears to be resting comfortably in bed, EYES OPEN. Vital Signs within normal limits. Respirations even and unlabored.
--- NOTE | 2021-05-04 06:15 | NUR ---
PT ATTEMPTED TO WALK HALLS AGAIN. REORIENTED TO ROOM. AMBULATED BACK TO BED WITHOUT DIFFICULTY. PT COOPERATIVE. WILL CONTINUE TO MONITOR.
--- NOTE | 2021-05-04 07:11 | NUR ---
REPORT GIVEN TO SHANNAN CLARKE FOR CONTINUITY OF CARE.
--- NOTE | 2021-05-04 08:38 | NUR ---
PT CURRENTLY EATING AT THIS TIME. Patient appears to be resting comfortably in bed. Vital Signs within normal limits. Respirations even and unlabored.
--- NOTE | 2021-05-04 11:13 | NUR ---
RECEIVED REPORT FROM SHANNAN LOONEY. TRANSFER OF CARE AT THIS TIME.
[2021-05-04 11:41] VITALS: BP 140/72
--- NOTE | 2021-05-04 11:43 | NUR ---
Patient Tranfers to outside Facility [facility].
--- NOTE | 2021-05-04 11:44 | NUR ---
SPOKE WITH JAVI FROM [facility] FOR PT ETA TRANSPORTION WITHIN 10MINUTES.
== END 2021-05-04 11:43 | disposition home or self-care (01) ==
LOC: MED 19:19
DX: R51.9 Headache, unspecified (principal); E11.9 Type 2 diabetes mellitus without complications; I10 Essential (primary) hypertension; F03.90 Unspecified dementia, unspecified severity, without behavioral disturbance, psychotic disturbance, mood disturbance, and anxiety; Z79.899 Other long term (current) drug therapy; W19.XXXA Unspecified fall, initial encounter; Y93.89 Activity, other specified; Y92.89 Other specified places as the place of occurrence of the external cause; Y99.8 Other external cause status; Z20.822 Contact with and (suspected) exposure to COVID-19
CPT/HCPCS: 70450; 70486; 99285

== ENCOUNTER 2022-04-19 18:19 | Emergency (ER) | payer OTHER ==
[~2022-04-19] VITALS: Ht 162.6 cm; Wt 74.8 kg
[2022-04-19 18:45] VITALS: BP 129/66
[2022-04-20 10:15] VITALS: BP 122/61
== END 2022-04-20 10:16 ==
LOC: MED 18:19
DX: S09.90XA Unspecified injury of head, initial encounter (principal); E11.9 Type 2 diabetes mellitus without complications; F03.90 Unspecified dementia, unspecified severity, without behavioral disturbance, psychotic disturbance, mood disturbance, and anxiety; I10 Essential (primary) hypertension; Z79.82 Long term (current) use of aspirin; Z79.899 Other long term (current) drug therapy; W19.XXXA Unspecified fall, initial encounter; Y93.89 Activity, other specified; Y92.89 Other specified places as the place of occurrence of the external cause; Y99.8 Other external cause status
CPT/HCPCS: 70450; 72125; 99285